=== PATIENT | male | born 1955 | race Hispanic/Latino ===

== ENCOUNTER 2024-09-15 14:03 | Emergency (ER) | payer MEDICARE, OTHER ==
[~2024-09-15] VITALS: Ht 170.2 cm; Wt 70.8 kg
[2024-09-15 14:09] VITALS: TEMP 97.8
--- NOTE | 2024-09-15 14:12 | ERN ---
ED Note History of Present Illness Stated Complaint: SENT BY PCP Chief Complaint: Urinary Retention Time Seen by MD: 14:05 Dictation: PATIENT IS A 68-YEAR-OLD MALE WHO LEFT R TODAY AFTER HAVING A PROSTATE BIOPSY BY THE UROLOGY DEPARTMENT THERE. HE HAD BEEN VOIDING SMALL FREQUENT AMOUNTS, VOIDED THIS MORNING A VERY SMALL AMOUNT WALKS IN HIS VERY DISTENDED AND HAS A URGENCY TO URINATE. STATES THE PROSTATE BIOPSY WAS DONE AND PATIENT WAS DISCHARGED WITHOUT BEING EVALUATED BY UROLOGIST. SECOND COMPLAINT IS RIGHT UPPER QUADRANT PAIN WITH NAUSEA ONSET ONE WEEK PRIOR TO ARRIVAL. HE WAS EVALUATED BY HIS DOCTOR THIS MORNING, SON AT BEDSIDE STATES HIS DOCTOR TOLD HIM HE HAD PROBABLE CHOLELITHIASIS Allergies: Coded Allergies: No Known Drug Allergies (Unverified Allergy, Intermediate, 09/15/24) Past Medical History RN Note Reviewed/Agreed w/PFSH: Yes Review of System Dictation CONSTITUTIONAL: NEGATIVE EXCEPT FOR HPI HEAD/FACE: NEGATIVE EXCEPT FOR HPI EENT: NEGATIVE EXCEPT FOR HPI RESPIRATORY: NEGATIVE EXCEPT FOR HPI GASTROINTESTINAL/ABDOMINAL: NEGATIVE EXCEPT FOR HPI RIGHT UPPER QUADRANT PAIN WITH NAUSEA GENITOURINARY: NEGATIVE EXCEPT FOR HPI BLADDER DISTENTION WITH URINARY URGENCY V OIDING SMALL AMOUNTS MUSCULOSKELETAL: NEGATIVE EXCEPT FOR HPI INTEGUMENTARY: NEGATIVE EXCEPT FOR HPI NEUROLOGICAL/PSYCH: NEGATIVE EXCEPT FOR HPI HEMATOLOGIC/LYMPHATIC: NEGATIVE EXCEPT FOR HPI ALL SYSTEMS NEGATIVE, EXCEPT NOTED ABOVE. 13 POINT REVIEW OF SYSTEMS ASSESSED AND ALL NEGATIVE EXCEPT FOR ABOVE. Initial Vital Sign VS Vital Signs Date Time Temp Pulse Resp B/P (MAP) Pulse Ox O2 Delivery O2 Flow Rate FiO2 09/15/24 14:09 97.9 110 20 98/70 99 Room Air 0 Physical Exam Dictation VITAL SIGNS REVIEWED GENERAL APPEARANCE: ALERT, ORIENTED X 3, SEVERE ACUTE DISTRESS, WELL DEVELOPED, NOURISHED. HEAD AND FACE: NON-TRAUMATIC. EYES: PERRL, PINK CONJUNCTIVAS, EYELID NO TRAUMA, ANTERIOR CHAMBER WITH ARCUS SENILIS. EARS: PINNAS INTACT AND NO SIGNS OF TRAUMA OR ERYTHEMA EAR CANALS CLEAR AND NO DISCHARGE TM NO ERYTHEMA NOSE: NO DISCHARGE, NO BLEEDING. OROPHARYNX: MOUTH NORMAL, TONGUE PINK, PHARYNX CLEAR,NO ERYTHEMA, TONSILS NO EXUDATES, NO ABSCESSES NOTED, MUCOUS MEMBRANE MOIST NECK: SUPPLE, NON-TENDER, NO THYROMEGALY, NO MASSES, NO JVD, NO BRUITS BREAST:DEFERRED CHEST:NO TENDERNESS, NO CREPITUS, NO PARADOXICAL MOVEMENT, NO RETRACTIONS LUNGS:CLEAR, WELL-VENTILATED, SYMMETRIC, NO RALES, NO WHEEZING, NO RHONCHI, NO STRIDOR, GOOD BREATH SOUNDS BILATERALLY HEART: REGULAR RATE, REGULAR RHYTHM, NO MURMUR, NO GALLOPS VASCULAR: NO PERIPHERAL EDEMA, ABDOMEN: SOFT, POSITIVE BOWEL SOUNDS, NONDISTENDED, NO GUARDING, NONTENDER, NO REBOUND, NO MASSES NO HEPATOMEGALY, NO SPLENOMEGALY, POSITIVE OCHOA'S OCHOA'S SIGN, NO HERNIAS. RECTAL: DEFERRED GENITAL: BLADDER IS DISTENDED 2-3 FINGERBREADTHS ABOVE SYMPHYSIS PUBIS. PATIENT VERY UNCOMFORTABLE NEUROLOGICAL: NORMAL SPEECH, MOTOR FUNCTION INTACT, SENSORY FUNCTION INTACT MUSCULOSKELETAL: NECK NONTENDER, FULL RANGE OF MOTION, BACK NONTENDER, FULL RANGE OF MOTION, EXTREMITIES: NONTENDER, FULL RANGE OF MOTION SKIN: COLOR PINK, DRY, NO TURGOR, NO RASH, NO LACERATIONS, NO ABRASIONS, NO CONTUSIONS. LYMPHATIC: DEFERRED Results (Laboratory/Radiology) Laboratory/Radiology Laboratory Tests Test 09/15/24 14:41 White Blood Count 7.4 K/uL (4.8-10.8) Red Blood Count 4.13 MIL/uL (4.50-6.20) L Hemoglobin 12.5 g/dL (14.0-18.0) L Hematocrit 36.1 % (42-54) L Mean Corpuscular Volume 87.4 fL (79-99) Mean Corpuscular Hemoglobin 30.3 pg (27.0-33.0) Mean Corpuscular Hemoglobin Concent 34.6 g/dL (32.0-36.0) Red Cell Distribution Width 12.0 % (11.0-15.5) Platelet Count 336 K/uL (130-400) Mean Platelet Volume 11.1 fL (7.5-10.5) H Immature Granulocyte % (Auto) 0.4 % (0-1) Neutrophils (%) (Auto) 74.2 % (40.0-77.0) Lymphocytes (%) (Auto) 13.1 % (21.0-51.0) L Monocytes (%) (Auto) 11.1 % (3.0-13.0) Eosinophils (%) (Auto) 0.7 % (0.0-8.0) Basophils (%) (Auto) 0.5 % (0.0-5.0) Neutrophils # (Auto) 5.5 K/uL (1.8-7.7) Lymphocytes # (Auto) 1.0 K/uL (1.0-4.8) Monocytes # (Auto) 0.8 K/uL (0.1-1.0) Eosinophils # (Auto) 0.05 K/uL (0.00-0.70) Basophils # (Auto) 0.04 K/uL (0.00-0.20) Absolute Immature Granulocyte (auto 0.03 K/uL (0-1) Nucleated Red Blood Cells 0.0 % (0.0-0.19) Sodium Level 132 mmol/L (136-145) L Potassium Level 4.2 mmol/L (3.5-5.1) Chloride Level 97 mmol/L (101-111) L Carbon Dioxide Level 26 mmol/L (21-32) Blood Urea Nitrogen 26 mg/dL (7-18) H Creatinine 0.7 mg/dL (0.5-1.3) Glomerular Filtration Rate Calc 101 mL/min (>90) Random Glucose 103 mg/dL (70-105) Total Calcium 11.2 mg/dL (8.5-10.1) H Lipase 17 U/L (16-77) 1608/RIGHT UPPER QUADRANT ULTRASOUND DEMONSTRATES MULTIPLE HEPATIC CYST. STONE SEEN IN GALLBLADDER NO PERICHOLECYSTIC FLUID OR THICKENING. COMMON BILE DUCT 3 MM Labs Reviewed?: Yes ED Course ED Course Orders Procedure Category Date Status Time Nurse Driven Mack HOWARD 09/15/24 In Process Removal Pro 14:10 Cbc With Differential LAB 09/15/24 Complete 14:31 Urinalysis Profile LAB 09/15/24 Logged 14:31 Us Abdominal Ruq\Ltd US 09/15/24 Resulted 14:31 0.9%Nacl 1000ml (Ns PHA 09/15/24 Complete 1000ml) 15:00 Morphine 2mg Syg PHA 09/15/24 Complete (Morphine 2mg Syg) 15:00 Ondansetron 4mg Inj PHA 09/15/24 Complete (Zofran 4mg Inj) 15:00 Lipase LAB 09/15/24 Complete 14:31 Basic Metabolic Panel LAB 09/15/24 Complete 14:31 Current Medications Medications (Trade) Dose Ordered Sig/Murray Route PRN Reason Start Time Stop Time Status Last Admin Dose Admin Morphine Sulfate (morPHINE 2MG SYG) 2 mg ONCE ONCE IVP 09/15/24 15:00 09/15/24 15:01 DC 09/15/24 15:27 Ondansetron HCl (zoFRAN 4MG INJ) 4 mg ONCE ONCE IVP 09/15/24 15:00 09/15/24 15:01 DC 09/15/24 15:27 Sodium Chloride 1,000 ml @ 0 mls/hr ONCE ONCE IV 09/15/24 15:00 09/15/24 15:01 DC 09/15/24 15:27 Vital Signs Date Time Temp Pulse Resp B/P (MAP) Pulse Ox O2 Delivery O2 Flow Rate FiO2 09/15/24 14:09 97.9 110 20 98/70 99 Room Air 0 1610/SPOKE WITH PATIENT IN HIS SON JIMMY AT BEDSIDE. THEY ARE AWARE THAT PATIENT HAS BENIGN PROSTATE HYPERTROPHY WITH URINARY RETENTION WE WILL BE PLACED ON LEVAQUIN. PATIENT IS ALREADY ON FLOMAX 0.4 MG DAILY AND WAS TOLD TO CONTINUE THAT. HE WAS INSTRUCTED ON LOW-FAT DIET AND BILIARY COLIC, FOLLOW UP WITH HIS PRIMARY CARE DOCTOR. ALL QUESTIONS ANSWERED Medical Decision Making MDM MDM: DIFFERENTIAL DIAGNOSIS: BPH WITH RETENTION/UTI/CHOLELITHIASIS/CHOL EDOCHOLITHIASIS/ELECTROLYTE IMBALANCE/DEHYDRATION RATIONALE: TESTS CONSIDERED AND ORDERED SECONDARY TO SHARED DECISION MAKING I URINE/LABS/RADIOLOGY PREVIOUS OUTSIDE RECORDS REVIEWED: OLD ER VISITS. RISK OF COMPLICATION AND/OR MORBIDITY OR MORTALITY OF PATIENT MANAGEMENT: NONE MEDICATIONS-PER MEDICATION RECONCILIATION NEED FOR HOSPITALIZATION: PATIENT DOES NOT MEET CRITERIA FOR HOSPITALIZATION. NO NEED FOR EMERGENCY MAJOR/MINOR SURGERY: NO THERE ARE NO SOCIAL CONCERNS WITH THIS PATIENT. PRESCRIPTION DRUG MANAGEMENT AUGMENTIN/BENTYL PRESCRIPTIONS WILL INCLUDE SYMPTOMATIC CARE PATIENT'S PRIOR EXTERNAL MEDICAL RECORDS FROM OTHER ER VISITS WERE REVIEWED BY ME INDICATED. PRIOR TESTING AND RESULTS FROM PREVIOUS VISITS WERE REVIEWED. PRIOR TESTS WERE TAKEN INTO ACCOUNT WITH MEDICAL DECISION MAKING AND RESOURCE UTILIZATION, INDEPENDENT HISTORIAN/HISTORIANS WERE USED TO OBTAIN COMPLETE MEDICAL HISTORY. I INDEPENDENTLY INTERPRETED THE TEST THAT WERE PERFORMED, RESULTS WERE REVIEWED BY ME AND CONSIDERED FINDINGS ON RADIOLOGY IF ORDERED. MEDICAL MANAGEMENT AND EXAMINATION INTERPRETATION DISCUSSIONS WERE HAD BY ME WITH OTHER QUALIFIED HEALTHCARE PROFESSIONALS INDICATED FOR THE PATIENT'S CARE. Procedure Procedure Dictation: 1425/EXPLAINED PROCEDURE TO PATIENT HE AGREED TO PROCEED SALESPERSON PIANOS AND ORGANS PLACED 16 BELARUSIAN DRAKE CATHETER ASEPTICALLY PLACED WITHOUT DIFFICULTY IMMEDIATELY RETURNED TO 450 CC DARK NORI URINE. BLADDER NO LONGER PALPABLE AND WE WILL SEND SPECIMEN TO LAB FOR URINALYSIS. PATIENT STATES HE FEELS BETTER DX & DISP Disposition: Discharge Departure Impression: Primary Impression: Urinary retention due to benign prostatic hyperplasia Additional Impressions: Cholelithiasis, Biliary colic Condition: Stable Scripts Levofloxacin (Levofloxacin) 500 Mg Tablet 1 TAB PO DAILY for 10 Days, #10 TAB 0 Refills Prov: JOHNATHAN STRANGE NP 09/15/24 Dicyclomine HCl (Bentyl) 20 Mg Tab 20 MG PO Q6HPRN PRN for ABDOMINAL PAIN, #30 TAB Prov: JOHNATHAN STRANGE NP 09/15/24 Additional Instructions: FOLLOW-UP WITH PRIMARY CARE PROVIDER IN 1 TO 2 DAYS. TAKE MEDICATIONS DIRECTED HERE IN THE EMERGENCY ROOM. OKAY TO CONTINUE HOME MEDICATIONS UNLESS OTHERWISE DISCUSSED DURING YOUR VISIT IN THE EMERGENCY ROOM TODAY. RETURN TO YOUR NEAREST EMERGENCY ROOM IF SYMPTOMS WORSEN OR IF THERE IS NO IMPROVEMENT. CALL 911 IF YOU NEED IMMEDIATE ASSISTANCE. TAKE TYLENOL OR MOTRIN [id number] NEEDED AND IF NO CONTRAINDICATIONS ARE PRESENT. INCREASE ORAL HYDRATION. A WOUND CULTURE OR URINE CULTURE WAS ORDERED HERE IN THE EMERGENCY ROOM DEPARTMENT PLEASE FOLLOW-UP WITH PRIMARY CARE PROVIDER AND ADVISE THEM TO GET REPEAT PORTS FROM OUR FACILITY. IF YOU HAD ANY STACIA WRAP/SPLINTS THAT WERE APPLIED HERE, PLEASE DO NOT REMOVE THEM UNTIL YOU SEE YOUR PRIMARY CARE OR SPECIALTY. CONTINUE FLOMAX AT HOME. TAKE LEVAQUIN DIRECTED UNTIL GONE STARTING TOMORROW. INCREASE YOUR WATER INTAKE. FOLLOW A LOW-FAT DIET AND FOLLOW UP WITH YOUR PRIMARY CARE DOCTOR IN THE NEXT SEVERAL DAYS FOR YOUR GALLBLADDER PAIN. Referrals: SELF,REFERRAL (PCP) Time of Disposition: 16:10 I have reviewed the case, and I agree with, Diagnosis and Plan JOHNATHAN STRANGE NP Sep 15, 2024 14:11
[2024-09-15 15:03] LABS: CREATININE 0.7 mg/dL (0.5-1.3); GLOMERULAR FILTR. RATE CALC 101.0 mL/min (>90); GLUCOSE,RANDOM 103.0 mg/dL (70-105); SODIUM SERUM 132.0 mmol/L (136-145); UREA NITROGEN, BLOOD 26.0 mg/dL (7-18)
[2024-09-15 15:06] LABS: IMMATURE GRANULOCYTE ABSOLUTE 0.03 K/uL (0-1); NUCLEATED RED BLOOD CELLS 0.0 % (0.0-0.19); PLATELET COUNT (AUTO) 336 K/uL (130-400); RED BLOOD CELL COUNT(AUTO) 4.13 MIL/uL (4.50-6.20); RED CELL DISTRIBUTION WIDTH 12.0 % (11.0-15.5); WHITE BLOOD COUNT (AUTO) 7.4 K/uL (4.8-10.8)
[2024-09-15] MEDS: 0.9%NACL 1000ML 1,000 ML IV ONE (15:27)
--- NOTE | 2024-09-15 16:04 | HMCIMG ---
Exam: Right upper quadrant ultrasound. History: Abdominal pain Technique: Static grayscale and color Doppler images are submitted. Findings: There are multiple hepatic hyperechogenic nodules throughout the liver. No intrahepatic biliary ductal dilatation. The visualized portions of the pancreas are unremarkable. The tail is not well seen due to overlying bowel gas. There is a gallstone within the neck of the gallbladder. There is no gallbladder wall thickening, kalyani-cholecystic fluid, or sonographic Harman sign. The common bile duct measures 3.0 mm in diameter. The right kidney is normal in size, contour and echotexture. It measures 11.0 cm in greatest sagittal dimension. There is no hydronephrosis, nephrolithiasis or kalyani-nephric fluid. No free fluid is present within the right upper quadrant. IMPRESSION: 1. No acute right upper quadrant abnormality. 2. Multiple hepatic hyperechogenic nodules. Recommend CT abdomen with and without IV contrast hepatic protocol for further evaluation. 3. Single gallstone within the gallbladder neck without evidence of acute cholecystitis. /[place]
[2024-09-15] MEDS ORDERED: LEVO-70 PO (16:12)
[2024-09-15] MEDS ORDERED: DICY20TA2 PO (16:12)
[2024-09-15 17:18] VITALS: BP 126/81; PULSE 97; RESP 16; O2SAT 97
[2024-09-15 17:37] LABS: ADD UA MICROSCOPIC YES; APPEARANCE,URINE CLEAR (CLEAR); GLUCOSE, URINE (UA) NEGATIVE (NEGATIVE); LEUKOCYTE ESTERASE ,URINE NEGATIVE Leu/uL (NEGATIVE); NITRATE,URINE NEGATIVE (NEGATIVE); OCCULT BLOOD,URINE SMALL (NEGATIVE)
[2024-09-15 17:39] LABS: SQUAMOUS EPITHELIAL CELL,UR RARE /HPF (0-2); UNCLASSIFIED CRYSTAL 2 /HPF (None Seen)
== END 2024-09-15 18:18 | disposition home or self-care (01) ==
LOC: EDH 14:03
DX: N40.1 Benign prostatic hyperplasia with lower urinary tract symptoms (principal); K80.20 Calculus of gallbladder without cholecystitis without obstruction; K80.50 Calculus of bile duct without cholangitis or cholecystitis without obstruction
CPT/HCPCS: 99285; 80048; 83690; 85025; 81001; 36415; 76705; 96374; 96361; 96375; 51702; J2270; J7030; J2405

== ENCOUNTER 2024-10-01 22:55 | Emergency (ER) | payer OTHER ==
[~2024-10-01] VITALS: Ht 170.2 cm; Wt 63.5 kg
[~2024-10-01 22:55] MED LIST: DICY20TA2 PO; LEVO-70 PO
--- NOTE | 2024-10-01 23:32 | EKG ---
[facility] Test Date: 2024-10-01 Test Time: 23:27:48 Pat Name: BARBARA MONTOYA Department: ED Room: Gender: M Running Specialist: [id number] [phone] [id number] Requested By: CHRISTOPHER GUTIERREZ Order Number: [id number] Reading MD: Alex Hope Measurements Intervals [place] Rate: 94 P: 60 AK: 142 QRS: -20 QRSD: 105 T: 29 QT: 332 QTc: 416 Interpretive Statements Sinus rhythm Inferior infarct, old No previous ECG available for comparison Electronically Signed On 10-02-2024 11:08:42 CDT by Alex Hope Please click the below link to view image of tracing.
[2024-10-01 23:33] LABS: IMMATURE GRANULOCYTE ABSOLUTE 0.06 K/uL (0-1); NUCLEATED RED BLOOD CELLS 0.0 % (0.0-0.19); PLATELET COUNT (AUTO) 421 K/uL (130-400); RED BLOOD CELL COUNT(AUTO) 4.39 MIL/uL (4.50-6.20); RED CELL DISTRIBUTION WIDTH 13.4 % (11.0-15.5); WHITE BLOOD COUNT (AUTO) 11.5 K/uL (4.8-10.8)
[2024-10-01] MEDS: 0.9%NACL 1000ML 1,000 ML IV ONE (23:34)
[2024-10-01 23:40] LABS: INR 1.14 (0.85-1.15)
[2024-10-01 23:53] LABS: ASPARTATE AMINOTRANSFERASE 290.0 U/L (10-37); CREATINE KINASE, TOTAL 75.0 U/L (21-232); CREATININE 0.9 mg/dL (0.5-1.3); GLOMERULAR FILTR. RATE CALC 94.0 mL/min (>90); GLUCOSE,RANDOM 146.0 mg/dL (70-105); SODIUM SERUM 134.0 mmol/L (136-145); TOTAL PROTEIN, SERUM 6.9 g/dL (6.0-8.3); UREA NITROGEN, BLOOD 32.0 mg/dL (7-18)
--- NOTE | 2024-10-02 00:30 | ERN ---
ED Note History of Present Illness Stated Complaint: PROSTATE PAIN, DARK URINE Chief Complaint: Weakness Time Seen by MD: 22:57 Time Seen by Midlevel: 22:57 Dictation: The patient is a 68-year-old male with a history of recently diagnosis of prostate cancer follow up by Dr. Pimentel Oncology, diabetes who presents to the emergency department of complaints of two weeks of weakness, lack of appetite, dark urine. Patient reports nausea but no vomiting. Denies any fevers or constipation. Allergies: Coded Allergies: No Known Drug Allergies (Unverified Allergy, Intermediate, 09/15/24) Home Meds Active Scripts Levofloxacin (Levofloxacin) 500 Mg Tablet, 1 TAB PO DAILY for 10 Days, #10 TAB 0 Refills Prov:JOHNATHAN STRANGE COMMUNITY DEVELOPMENT DIRECTOR 09/15/24 Dicyclomine HCl (Bentyl) 20 Mg Tab, 20 MG PO Q6HPRN PRN for ABDOMINAL PAIN, #30 TAB Prov:JOHNATHAN STRANGE COMMUNITY DEVELOPMENT DIRECTOR 09/15/24 Past Medical History Past Medical History: Diabetes-Type II, Other Additional Past Medical Hx: PROSTATE CANCER Surgical History: None RN Note Reviewed/Agreed w/PFSH: Yes Review of System Dictation Constitutional: Negative for fever,chills, positive for weight loss Eyes: Negative for injury, pain,redness, and discharge ENT: Negative for injury,pain or swelling Cardiovascular: Negative for chest pain, palpitations, and edema Respiratory: Negative for shortness of breath, cough, and wheezing, Abdomen/GI: Negative for pain, vomiting, diarrhea, and constipation positive for nausea, lower abdominal Back: Negative for injury and pain : Negative for injury, bleeding and discharge MS/Extremity: Negative for injury and deformity Skin: Negative for rash, and discoloration Neuro: Negative for headache, numbness, tingling, and seizure positive for weakness Psych: Negative for suicide ideation, homicidal ideation, and hallucinations Initial Vital Sign VS Vital Signs Date Time Temp Pulse Resp B/P (MAP) Pulse Ox O2 Delivery O2 Flow Rate FiO2 10/01/24 22:56 98.8 110 20 115/78 96 Room Air 10/01/24 23:23 0 21 Physical Exam Dictation Vital Signs reviewed General Appearance: Alert, oriented x 3, mildly distress, malnourished , week Head and Face: non-traumatic. Eyes: PERRL, pink conjunctivas, eyelid no trauma, anterior chamber with arcus senilis. Ears: Pinnas intact and no signs of trauma or erythema ear canals clear and no discharge TM no erythema Nose: No discharge, no bleeding. Oropharynx: Mouth normal, tongue pink. pharynx clear,no erythema, tonsils no exudates, no abscesses noted, mucous membrane moist Neck: Supple, non-tender, no thyromegaly, no masses, no JVD, no bruits Breast:Deferred Chest:No tenderness, no crepitus, no paradoxical movement, no retractions Lungs:Clear, well-ventilated, symmetric, no rales, no wheezing, no rhonchi, no stridor, good breath sounds bilaterally Heart: Regular rate, regular rhythm, no murmur, no gallops Vascular: no peripheral edema, Abdomen: Soft, positive bowel sounds, nondistended, no guarding, nontender, no rebound, no masses no hepatomegaly, no splenomegaly, no Harman's sign, no hernias. Rectal: Deferred Genital: Deferred Neurological: Normal speech, motor function intact, sensory function intact Musculoskeletal: Neck nontender, full range of motion, back nontender, full range of motion, Extremities: nontender, full range of motion Skin: Color jaundice, dry, no turgor, no rash, no lacerations, no abrasions, no contusions. Lymphatic: Deferred Results (Laboratory/Radiology) Laboratory/Radiology Laboratory Tests Test 10/01/24 23:21 10/02/24 01:38 10/02/24 02:31 White Blood Count 11.5 K/uL (4.8-10.8) H Red Blood Count 4.39 MIL/uL (4.50-6.20) L Hemoglobin 13.1 g/dL (14.0-18.0) L Hematocrit 38.8 % (42-54) L Mean Corpuscular Volume 88.4 fL (79-99) Mean Corpuscular Hemoglobin 29.8 pg (27.0-33.0) Mean Corpuscular Hemoglobin Concent 33.8 g/dL (32.0-36.0) Red Cell Distribution Width 13.4 % (11.0-15.5) Platelet Count 421 K/uL (130-400) H Mean Platelet Volume 11.3 fL (7.5-10.5) H Immature Granulocyte % (Auto) 0.5 % (0-1) Neutrophils (%) (Auto) 80.6 % (40.0-77.0) H Lymphocytes (%) (Auto) 10.1 % (21.0-51.0) L Monocytes (%) (Auto) 8.2 % (3.0-13.0) Eosinophils (%) (Auto) 0.2 % (0.0-8.0) Basophils (%) (Auto) 0.4 % (0.0-5.0) Neutrophils # (Auto) 9.3 K/uL (1.8-7.7) H Lymphocytes # (Auto) 1.2 K/uL (1.0-4.8) Monocytes # (Auto) 1.0 K/uL (0.1-1.0) Eosinophils # (Auto) 0.02 K/uL (0.00-0.70) Basophils # (Auto) 0.05 K/uL (0.00-0.20) Absolute Immature Granulocyte (auto 0.06 K/uL (0-1) Nucleated Red Blood Cells 0.0 % (0.0-0.19) Prothrombin Time 11.9 SEC (9.6-11.6) H Prothromb Time International Ratio 1.14 (0.85-1.15) Activated Partial Thromboplast Time 28.1 SEC (26.3-35.5) Sodium Level 134 mmol/L (136-145) L Potassium Level 4.3 mmol/L (3.5-5.1) Chloride Level 97 mmol/L (101-111) L Carbon Dioxide Level 31 mmol/L (21-32) Blood Urea Nitrogen 32 mg/dL (7-18) H Creatinine 0.9 mg/dL (0.5-1.3) Glomerular Filtration Rate Calc 94 mL/min (>90) Random Glucose 146 mg/dL (70-105) H Total Calcium 13.2 mg/dL (8.5-10.1) *H Magnesium Level 2.10 mg/dL (1.80-2.40) Total Bilirubin 7.5 mg/dL (0.2-1.0) H Direct Bilirubin 6.5 mg/dL (0.0-0.3) H Aspartate Amino Transf (AST/SGOT) 290 U/L (10-37) H Alanine Aminotransferase (ALT/SGPT) 154 U/L (12-78) H Alkaline Phosphatase 901 U/L (50-136) *H Total Creatine Kinase 75 U/L (21-232) Troponin I High Sensitivity 119 ng/L (4-75) *H 89 ng/L (4-75) *H Total Protein 6.9 g/dL (6.0-8.3) Albumin 2.5 g/dL (3.5-5.0) L Urine Color DARK-YELLOW (YELLOW) Urine Appearance CLOUDY (CLEAR) H Urine pH 6.0 (5.0-8.0) Urine Specific [place] 1.019 (1.001-1.031) Urine Protein 20 mg/dL (NEGATIVE) H Urine Glucose (UA) NEGATIVE mg/dL (NEGATIVE) Urine Ketones NEGATIVE mg/dL (NEGATIVE) Urine Occult Blood LARGE (NEGATIVE) H Urine Nitrate NEGATIVE (NEGATIVE) Urine Bilirubin 2 mg/dL (NEGATIVE) H Urine Urobilinogen 4.0 mg/dL (0.2-1.0) H Urine Leukocyte Esterase 75 [place]/uL (NEGATIVE) H Urine RBC TNTC /HPF (0-1) H Urine WBC 51-100 /HPF (0-1) H Urine Squamous Epithelial Cells RARE /HPF (0-2) Urine Amorphous Crystals (Auto) RARE /LPF (None Seen) Urine Bacteria FEW /HPF (None Seen) Urine Hyaline Casts 2-5 /LPF (0-1 /LPF) H Ammonia 43 umol/L (11-32) H Lipase 103 U/L (16-77) H REASON: sob ORDERING PHYSICIAN: CHRISTOPHER GUTIERREZ PIN SETTER PROCEDURE: CXR1VW - CHEST 1VW EXAM: CR Chest, 1 view CLINICAL HISTORY: Shortness of breath. COMPARISON: None provided. FINDINGS: The lungs show no infiltrates or other acute findings. No pleural effusion or pneumothorax. The cardiomediastinal silhouette is within normal limits. No acute osseous abnormality. IMPRESSION: No acute cardiopulmonary process is evident. /[place] Labs Reviewed?: Yes EKG: (+) rhythm EKG Comment: Date:10/01/2024 Time:2326 Ventricular rate:94 MN interval:142 QRS duration:105 QT/QTc:332/416 EKG interpretation: Sinus rhythm Reviewed by ED Attending no STEMI ED Course ED Course Orders Procedure Category Date Status Time Cbc With Differential LAB 10/01/24 Complete 23:23 Chest 1vw RAD 10/01/24 Resulted 23:23 12 Lead Ekg Tracing- EKG 10/01/24 Resulted Technical 23:23 0.9%Nacl 1000ml (Ns PHA 10/01/24 Complete 1000ml) 23:30 Magnesium LAB 10/01/24 Complete 23:23 Creatine Kinase, Total LAB 10/01/24 Complete 23:23 Troponin I High LAB 10/01/24 Complete Sensitivity 23:23 Urinalysis Profile LAB 10/01/24 Complete 23:23 Basic Metabolic Panel LAB 10/01/24 Complete 23:23 Hepatic Function Panel LAB 10/01/24 Complete 23:23 Pt And Ptt LAB 10/01/24 Complete 23:23 Ct Abdomen/Pelvis W/O CT 10/02/24 Resulted Contrast 00:01 Troponin I High LAB 10/02/24 Complete Sensitivity 00:59 Morphine 4mg Syg PHA 10/02/24 Complete (Morphine 4mg Syg) 02:00 Ondansetron 4mg Inj PHA 10/02/24 Complete (Zofran 4mg Inj) 02:00 Ammonia LAB 10/02/24 Complete 01:58 Morphine 2mg Syg PHA 10/02/24 Complete (Morphine 2mg Syg) 02:00 Lipase LAB 10/02/24 Complete 01:58 Culture Urine AMIE 10/02/24 Complete 02:18 Ceftriaxone 1g Vial PHA 10/02/24 Complete (Rocephine 1g Inj) 03:00 Current Medications Medications (Trade) Dose Ordered Sig/Murray Route PRN Reason Start Time Stop Time Status Last Admin Dose Admin Ceftriaxone Sodium (ROCEphine 1G INJ) 1 gm ONCE ONCE IVPB 10/02/24 03:00 10/02/24 03:01 DC 10/02/24 02:55 Morphine Sulfate (morPHINE 2MG SYG) 2 mg ONCE ONCE IVP 10/02/24 02:00 10/02/24 02:01 DC 10/02/24 02:04 Morphine Sulfate (morPHINE 4MG SYG) 4 mg ONCE ONCE IVP 10/02/24 02:00 10/02/24 01:59 DC Ondansetron HCl (zoFRAN 4MG INJ) 4 mg ONCE ONCE IVP 10/02/24 02:00 10/02/24 02:01 DC 10/02/24 02:05 Sodium Chloride 1,000 ml @ 0 mls/hr ONCE ONCE IV 10/01/24 23:30 10/01/24 23:31 DC 10/01/24 23:34 Vital Signs Date Time Temp Pulse Resp B/P (MAP) Pulse Ox O2 Delivery O2 Flow Rate FiO2 10/02/24 04:23 98.8 92 16 111/68 99 Room Air* 0 10/02/24 02:22 98.8 83 15 108/72 98 Room Air* 0 10/02/24 01:21 98.8 99 18 105/74 99 Room Air* 0 10/01/24 23:23 99 14 94/67 99 Room Air* 0 10/01/24 22:56 98.8 110 20 115/78 96 Room Air Medical Decision Making MDM MDM: The patient is a 68-year-old male with a history of recently diagnosis of prostate cancer follow up by Dr. Pimentel Oncology, diabetes who presents to the emergency department of complaints of two weeks of weakness, lack of appetite, dark urine. Patient reports nausea but no vomiting. Denies any fevers or constipation. CBC showed mild leukocytosis, mild normocytic anemia, chemistry showed hyponatremia, hypochloremia, creatinine of 0.9, transaminitis, elevated total bilirubin, elevated calcium, elevated troponin Differential diagnosis: Dehydration, electrolyte imbalance, failure to thrive, sepsis Comorbidities: Diabetes, prostate cancer 0300 Care transfer over to Dr. Hill The patient feels better with a bolus of fluid pain medications and antibiotics. He would like to be discharged home. His vital signs are stable. DX & DISP Disposition: Discharge Departure Impression: Primary Impression: Dehydration Condition: Stable Referrals: KASH PERLA (PCP) You have most likely prostate cancer that has metastasized to bone. And seems to have evidence of localized spread on the CT scan. You have been stabilized with fluids and antibiotics. Feel it is safe for you to go home. However I think you are at high risk for recurrent dehydration recurrent malnutrition. I strongly recommend you follow-up with your primary care physician or oncologist to address these issues. Please come back to the emergency room if you become dehydrated in the future CHRISTOPHER GUTIERREZ Oct 02, 2024 00:30 JAKOB NAVARRO MD Oct 02, 2024 03:56
--- NOTE | 2024-10-02 01:31 | HMCIMG ---
EXAM: CR Chest, 1 view CLINICAL HISTORY: Shortness of breath. COMPARISON: None provided. FINDINGS: The lungs show no infiltrates or other acute findings. No pleural effusion or pneumothorax. The cardiomediastinal silhouette is within normal limits. No acute osseous abnormality. IMPRESSION: No acute cardiopulmonary process is evident. /[place]
[2024-10-02 02:17] LABS: ADD UA MICROSCOPIC YES; APPEARANCE,URINE CLOUDY (CLEAR); GLUCOSE, URINE (UA) NEGATIVE (NEGATIVE); LEUKOCYTE ESTERASE ,URINE 75 Leu/uL (NEGATIVE); NITRATE,URINE NEGATIVE (NEGATIVE); OCCULT BLOOD,URINE LARGE (NEGATIVE)
[2024-10-02 02:21] LABS: SQUAMOUS EPITHELIAL CELL,UR RARE /HPF (0-2)
--- NOTE | 2024-10-02 03:12 | HMCIMG ---
EXAM: CT Abdomen and Pelvis without IV contrast CLINICAL HISTORY: Pain. TECHNIQUE: Thin collimated axial CT images of the abdomen and pelvis were obtained with sagittal and coronal reformatted images also submitted. CT scan is done according to ALARA (As Low As Reasonably Achievable). CONTRAST: None. COMPARISON: Ultrasound of the abdomen dated 09/15/2024. FINDINGS: Mild dependent atelectasis in the bilateral posterior lungs. Mild hepatomegaly with numerous hypodense round to oval hepatic lesions throughout the liver parenchyma, concerning hepatic metastasis, the largest measures up to 3.5 cm. Questionable phrygian cap at the gallbladder fundus. The previously noted gallbladder calculus is not appreciated on CT scan, likely due to its radiolucent nature. No focal abnormality within the pancreas, spleen, adrenals, or kidneys. Moderate prostatomegaly with bladder base indentation, mild asymmetric enlargement of the left seminal vesicle and asymmetric wall thickening in the left rectosigmoid area with adjacent fat stranding. There is about 1.8 x 1.8 cm enlarged lymph node in the right side of the pelvis. The urinary bladder is suboptimally distended with diffuse bladder wall thickening and the maximum bladder wall thickness of 1.2 cm, concerning chronic cystitis, the possibility of neoplastic bladder thickening cannot be excluded. A Giron's catheter is present within the urinary bladder. Small, uncomplicated, fat-containing inguinal hernias bilaterally. No bowel dilatation or obstruction. Unremarkable appendix. Tiny, uncomplicated fat-containing umbilical hernia. Mild calcific atherosclerotic disease in the abdominal aorta and its branches. No ascites or pneumoperitoneum. No acute bony abnormality is evident. Degenerative osseous changes. IMPRESSIONS: Moderate prostatomegaly with bladder base indentation, mild asymmetric enlargement of the left seminal vesicle and asymmetric wall thickening in the left rectosigmoid area with adjacent fat stranding. There is about 1.8 x 1.8 cm enlarged lymph node in the right side of the pelvis. The features concerning for pancreatic neoplasm infiltrating to the surrounding structures. The urinary bladder is suboptimally distended with diffuse bladder wall thickening and the maximum bladder wall thickness of 1.2 cm, concerning chronic cystitis, the possibility of neoplastic bladder thickening cannot be excluded. Redemonstrated hepatomegaly with hepatic metastasis. The previously noted gallbladder calculus is not appreciated on CT scan, likely due to its radiolucent nature. Small, uncomplicated, fat-containing inguinal hernias bilaterally. /[place]
[2024-10-02 04:23] VITALS: BP 111/68; PULSE 92; RESP 16; TEMP 98.8; O2SAT 99
== END 2024-10-02 04:41 | disposition home or self-care (01) ==
LOC: EDH 22:55
DX: E86.0 Dehydration (principal); R53.1 Weakness; R63.0 Anorexia; R82.998 Other abnormal findings in urine; E11.9 Type 2 diabetes mellitus without complications; C61 Malignant neoplasm of prostate
CPT/HCPCS: 99285; 71045; 82550; 80076; 83735; 84484 ×2; 80048; 82140; 83690; 85025; 85610; 85730; 87086; 81001; 36415 ×2; 93005; 74176; 96374; 96375; J7030; J2270; J0696; J2405